=== PATIENT | male | born 1965 ===

== ENCOUNTER 2022-07-15 23:00 | Emergency (ER) | payer OTHER ==
[~2022-07-15] VITALS: Ht 180.3 cm; Wt 102.0 kg
[2022-07-15] MEDS ORDERED: cloNIDine HCL 0.1 MG TAB PO ONE (23:30)
[2022-07-16 03:09] VITALS: BP 120/74
[2022-07-16] MEDS ORDERED: CEPH-510 PO (03:44)
[2022-07-16] MEDS ORDERED: CYCL-837 PO (03:44)
[2022-07-16] MEDS ORDERED: ACET-1158 PO (03:44)
[2022-07-16] MEDS ORDERED: TETANUS-DIPTH-ACEL PERTUSSIS 0.5ML SYR Tdap IM ONE (03:45)
== END 2022-07-16 04:45 | disposition home or self-care (01) ==
LOC: ER 23:00 → EDBD 23:00 → ER 07-16 04:45
DX: S61.411A Laceration without foreign body of right hand, initial encounter (principal); S63.501A Unspecified sprain of right wrist, initial encounter; I10 Essential (primary) hypertension; Z79.899 Other long term (current) drug therapy; V43.52XA Car driver injured in collision with other type car in traffic accident, initial encounter; Y93.89 Activity, other specified; Y92.410 Unspecified street and highway as the place of occurrence of the external cause; Y99.8 Other external cause status
CPT/HCPCS: 12002; 73110; 90471; 90715